=== PATIENT | female | born 1995 ===

== ENCOUNTER 2024-09-02 12:34 | Emergency (ER) | payer BC, OTHER ==
[~2024-09-02] VITALS: Ht 152.4 cm; Wt 60.0 kg
[2024-09-02 12:54] VITALS: RESP 16; O2SAT 97
[2024-09-02 17:00] VITALS: BP 110/61; PULSE 80; RESP 20; TEMP 98.4; O2SAT 96
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
== END 2024-09-02 17:14 | disposition home or self-care (01) ==
LOC: ER 12:34
DX: O09.32 Supervision of pregnancy with insufficient antenatal care, second trimester (principal); Z3A.27 27 weeks gestation of pregnancy